=== PATIENT | male | born 1945 | race Two or more races ===

== ENCOUNTER 2017-10-30 12:46 | Emergency (ER) | payer MEDICARE, MEDICAID ==
[~2017-10-30] VITALS: Ht 160 cm; Wt 68.8 kg
[2017-10-30 12:48] VITALS: BP 145/70
== END 2017-10-30 14:22 | disposition home or self-care (01) ==
LOC: ED 14:14
DX: T65.91XA Toxic effect of unspecified substance, accidental (unintentional), initial encounter (principal); L23.5 Allergic contact dermatitis due to other chemical products; Y92.89 Other specified places as the place of occurrence of the external cause; H66.001 Acute suppurative otitis media without spontaneous rupture of ear drum, right ear
CPT/HCPCS: 99283

== ENCOUNTER 2019-07-31 16:58 | Emergency (ER) | payer MEDICAID, MEDICARE ==
[~2019-07-31] VITALS: Ht 160 cm; Wt 65.3 kg
--- NOTE | 2019-07-31 18:02 | NUR ---
HAIR TINTER: PT TO ROOM FROM JENNIFER ALVARADO.
[2019-07-31] MEDS ORDERED: OMNIPAQUE 350 MG/ML, 100ML BOTTLE ONE (18:17)
[2019-07-31] MEDS ORDERED: FAMOTIDINE 20 MG/2 ML ONE (18:25)
[2019-07-31] MEDS ORDERED: MORPHINE SULFATE 4 MG/ML, 1ML ONE (18:25)
[2019-07-31] MEDS ORDERED: PANTOPRAZOLE 40 MG IV ONE (18:25)
[2019-07-31] MEDS ORDERED: ONDANSETRON 2MG/ML, 2ML ONE (18:25)
[2019-07-31] MEDS ORDERED: ONDANSETRON 2MG/ML, 2ML IVPush ONE (18:30)
[2019-07-31] MEDS ORDERED: MORPHINE SULFATE 4 MG/ML, 1ML IVPush PRN (18:30)
[2019-07-31] MEDS ORDERED: SODIUM CHLORIDE FLUSH 10ML SYR IVF ONE (18:30)
[2019-07-31] MEDS ORDERED: PANTOPRAZOLE 40 MG IV IVPush ONE (18:30)
[2019-07-31] MEDS ORDERED: FAMOTIDINE 20 MG/2 ML IV ONE (18:30)
--- NOTE | 2019-07-31 18:30 | NUR ---
PATIENT NOTED WITH N/V X 3 DAYS WITH VOMITTING AFTER EATING. EPIGASTRIC ABD PAIN AND CRAMPING
[2019-07-31 18:45] LABS: BASOPHILS # (AUTO) 0.01 x10^3/uL (0-0.1); BASOPHILS % (AUTO) 0 % (0-1); EOSINOPHILS # (AUTO) 0.09 x10^3/uL (0-0.4); EOSINOPHILS % (AUTO) 1 % (1-7); LYMPHOCYTES # (AUTO) 0.88 x10^3/uL (1-3.4); LYMPHOCYTES % (AUTO) 11 % (22-44); MD NO; MEAN CORPUSCULAR HEMOGLOBIN 31.2 pg (27.5-34.5); MEAN CORPUSCULAR HGB CONC 33.3 g/dL (33.2-36.2); MEAN CORPUSCULAR VOLUME 93.7 fL (81-97); MEAN PLATELET VOLUME 7.5 fL (7.4-10.4); MONOCYTES # (AUTO) 0.15 x10^3/uL (0.2-0.8); MONOCYTES % (AUTO) 2 % (2-9); NEUTROPHILS # (AUTO) 6.98 x10^3/uL (1.8-6.8); NEUTROPHILS % (AUTO) 86 % (42-75); PLATELET COUNT 217 x10^3/uL (130-400); RED BLOOD COUNT 5.35 x10^6/uL (4.38-5.82); RED CELL DISTRIBUTION WIDTH 12.3 % (9.4-14.8)
[2019-07-31 18:58] LABS: ALBUMIN 3.8 g/dL (3.4-5.0); ANION GAP 9 mmol/L (5-15); CALCIUM 9.2 mg/dL (8.5-10.1); CHLORIDE 104 mmol/L (98-107); CREATININE 0.73 mg/dL (0.7-1.3)
[2019-07-31 19:00] LABS: ALANINE AMINOTRANSFERASE 26 U/L (12-78); ALKALINE PHOSPHATASE 116 U/L (45-117); BILIRUBIN,TOTAL 0.7 mg/dL (0.2-1.0); TOTAL PROTEIN 8.1 g/dL (6.4-8.2)
--- NOTE | 2019-07-31 19:12 | NUR ---
REPORT RECEIVED FROM CARMELO BARKSDALE.
[2019-07-31 19:18] LABS: MICROSCOPIC NOT IND
[2019-07-31 19:29] LABS: CULTURE INDICATED? NO
[2019-07-31 20:20] VITALS: BP 149/74
[2019-07-31] MEDS ORDERED: SODIUM CHLORIDE 0.9% 1,000ML IVBOLUS ONE (21:00)
== END 2019-07-31 20:47 | disposition home or self-care (01) ==
LOC: ED 20:39
DX: R11.2 Nausea with vomiting, unspecified (principal); E86.0 Dehydration; R10.84 Generalized abdominal pain; M19.90 Unspecified osteoarthritis, unspecified site; I10 Essential (primary) hypertension
CPT/HCPCS: 36415; 74177; 80053; 81003; 83690; 85025; 96374; 96375; 99284; C9113; J2270; J2405; J3490; Q9967